=== PATIENT | female | born 1955 | race Caucasian/White ===

== ENCOUNTER 2017-02-15 10:59 | Emergency (ER) | payer BC | END 2017-02-15 11:07 | disposition left against medical advice (07) | LOC: UCEAST 10:59 | DX: S99.919A Unspecified injury of unspecified ankle, initial encounter (principal); X58.XXXA Exposure to other specified factors, initial encounter; Y93.9 Activity, unspecified; Y92.9 Unspecified place or not applicable; Z53.21 Procedure and treatment not carried out due to patient leaving prior to being seen by health care provider ==

== ENCOUNTER 2017-02-15 11:44 | Emergency (ER) | payer BC ==
[2017-02-15 13:01] VITALS: BP 107/64
[2017-02-15] MEDS ORDERED: Ibuprofen TAB* 600 MG PO ONE (13:08)
--- NOTE | 2017-02-15 13:08 | UC ---
Lower Extremity/Ankle HPI - HPI Summary HPI Summary: 61 yo female twisted her left ankle walking dog this AM no hx prior injury has felt achy today no cough/runny nose or UTI symptoms - History of Current Complaint Chief Complaint: UCLowerExtremity Stated Complaint: LEFT ANKLE INJURY Time Seen by Provider: 02/15/17 12:44 Hx Obtained From: Patient Onset/Duration: Sudden Onset, Lasting Hours Severity Initially: Moderate Severity Currently: Moderate Pain Intensity: 6 Pain Scale Used: 0-10 Numeric Aggravating Factor(s): Standing, Ambulation Alleviating Factor(s): Rest, Elevation Able to Bear Weight: No - Allergies/Home Medications Allergies/Adverse Reactions: Allergies Allergy/AdvReac Type Severity Reaction Status Date / Time Codeine Allergy Hives/Diff. Verified 08/28/12 07:11 Breathing/I tching Home Medications: Home Medications Multiple Vitamin [Multi Vitamin] 1 tab PO DAILY 02/15/17 [History Confirmed 04/27] PMH/Surg Hx/FS Hx/Imm Hx Previously Healthy: Yes Endocrine History Of: Denies: Diabetes, Thyroid Disease Cardiovascular History Of: Denies: Cardiac Disorders, Hypertension, Pacemaker/ICD Respiratory History Of: Denies: COPD, Asthma GI/ History Of: Denies: Ulcer, Renal Disease Cancer History Of: Reports: Breast Cancer - RIGHT 2002 - Surgical History Surgical History: Yes Surgery Procedure, Year, and Place: HYSTEROSCOPY 2008. RIGHT BREAST CARCINOMA- LUMPECTOMY THEN RADIATION 2002. Tubal Ligation - Family History Known Family History: Positive: Hypertension - Social History Alcohol Use: Daily Alcohol Amount: glass of wine Substance Use Type: None Smoking Status (MU): Never Smoked Tobacco - Immunization History Most Recent Influenza Vaccination: 2015/2016 Review of Systems Constitutional: Negative Skin: Negative Eyes: Negative ENT: Negative Respiratory: Negative Cardiovascular: Negative Gastrointestinal: Negative Genitourinary: Negative Motor: Negative Neurovascular: Negative Musculoskeletal: Arthralgia Neurological: Negative Psychological: Negative All Other Systems Reviewed And Are Negative: Yes Physical Exam Triage Information Reviewed: Yes Appearance: Well-Appearing, No Pain Distress, Well-Nourished Vital Signs: Initial Vital Signs Temp 100.6 F 02/15/17 12:51 Pulse 82 02/15/17 12:51 Resp 18 02/15/17 12:51 BP 107/64 02/15/17 12:51 Pulse Ox 96 02/15/17 12:51 Eye Exam: Normal Eyes: Positive: Conjunctiva Clear ENT: Positive: Hearing grossly normal, Nasal congestion, Nasal drainage. Negative: Trismus, Muffled/hoarse voice Neck: Positive: Supple, Nontender, No Lymphadenopathy Respiratory: Positive: Lungs clear, Normal breath sounds, No respiratory distress, No accessory muscle use Cardiovascular: Positive: RRR, No Murmur Musculoskeletal: Positive: Other: - see image Neurological: Positive: Alert Psychological Exam: Normal Skin Exam: Normal Lower Extremity Course/Dx - Course Course Of Treatment: declines crutches or walker - Differential Dx/Diagnosis Provider Diagnoses: left ankle sprain Discharge - Discharge Plan Condition: Stable Disposition: HOME Prescriptions: Ibuprofen TAB* [Motrin TAB*] 600 mg PO QID PRN #40 tab PRN Reason: Pain Tramadol HCl [Ultram] 50 mg PO QID PRN #20 tab MDD 4 PRN Reason: Pain - Severe Patient Education Materials: Ankle Sprain (ED) Referrals: Angle Man MD [Primary Care Provider] - Additional Instructions: rest elevate ice use your walking boot recheck in 1-2 weeks if not better (your archival records clerk or orthopedist) Images Feet (Multiple View): 1 - tender 2 - tender/swollen
--- NOTE | 2017-02-15 13:46 | RAD ---
INDICATION: Reduced range of motion after twisting injury of the right ankle. COMPARISON: None. TECHNIQUE: 3 views of the left ankle were obtained. FINDINGS: The well corticated bones exhibit normal alignment. Joint spaces appear maintained. No fracture is seen. IMPRESSION: Normal ankle radiograph. If the patient's symptoms persist, follow-up imaging is recommended.
== END 2017-02-15 14:15 | disposition home or self-care (01) ==
LOC: UCEAST 11:44
DX: S93.402A Sprain of unspecified ligament of left ankle, initial encounter (principal); X50.1XXA Overexertion from prolonged static or awkward postures, initial encounter; Z88.5 Allergy status to narcotic agent; Z85.3 Personal history of malignant neoplasm of breast; Z92.3 Personal history of irradiation
CPT/HCPCS: 99212; A9270-GY; G0463

== ENCOUNTER 2017-09-09 07:50 | Emergency (ER) | payer BC | END 2017-09-09 08:18 | disposition left against medical advice (07) | LOC: UCEAST 07:50 | DX: R09.89 Other specified symptoms and signs involving the circulatory and respiratory systems (principal); R05 Cough; Z53.21 Procedure and treatment not carried out due to patient leaving prior to being seen by health care provider ==

== ENCOUNTER 2018-02-08 07:04 | Emergency (ER) | payer BC ==
[2018-02-08 07:19] VITALS: BP 128/70
[2018-02-08] MEDS ORDERED: Lidocaine 2% VISCOUS* 15 ML UDC PO ONE (07:48)
--- NOTE | 2018-02-08 10:25 | UC ---
Nico Ford Julia, scribed for Rebecca Carroll DO on 02/08/18 at 0738 . General HPI - HPI Summary HPI Summary: This patient is a 62 year old F presenting to [facility] [place] with a chief complaint of a sore throat and cough since the evening 02/06/18. The patient rates the pain 5/ 10 in severity. Patient reports body aches, intermittent muffled hearing, and mild chest pain that only occurs with cough. She denies fever, coughing spasms, sinus congestion, headache, n/v/d, and abdominal pain. Pt has not been eating nor has she been drinking enough fluids secondary to throat pain. Pt reports tinnitus at baseline. Seasonal allergies are currently bothersome. Pt is concerned that symptoms will worsen and prolong, as she as had similar symptoms previously last multiple weeks. - History of Current Complaint Chief Complaint: UCGeneralIllness Stated Complaint: SORE THROAT Time Seen by Provider: 02/08/18 07:10 Hx Obtained From: Patient Onset/Duration: Gradual Onset, Lasting Days Pain Intensity: 5 Pain Location at: throat Aggravating: drinking Associated Signs & Symptoms: Positive: Cough, Chest Pain - only with cough, Decreased Oral Intake, Other - negative - confusion, gait changes, sinus congestion, headache, n/v/d, and abdominal pain. Negative: Abdominal Pain, Fever, Headache - Allergy/Home Medications Allergies/Adverse Reactions: Allergies Allergy/AdvReac Type Severity Reaction Status Date / Time codeine Allergy Severe Difficulty Verified 02/08/18 07:11 Breathing PMH/Surg Hx/FS Hx/Imm Hx Previously Healthy: Yes - other than breast CA in 2002 Other Endocrine History: negative - DM - Surgical History Surgical History: Yes Surgery Procedure, Year, and Place: HYSTEROSCOPY 2008. RIGHT BREAST CARCINOMA- LUMPECTOMY THEN RADIATION 2002. Tubal Ligation - Family History Known Family History: Positive: Hypertension, Other - Alzhiemer's - father, dementia - mother - Social History Alcohol Use: Daily Alcohol Amount: glass of wine Substance Use Type: None Smoking Status (MU): Never Smoked Tobacco - Immunization History Most Recent Influenza Vaccination: 2015/2016 Review of Systems Constitutional: Negative - fever ENT: Sore Throat, Ear Ache Respiratory: Cough Gastrointestinal: Negative Motor: Negative Neurovascular: Negative Musculoskeletal: Myalgia - body aches Neurological: Negative All Other Systems Reviewed And Are Negative: Yes Physical Exam - Summary Physical Exam Summary: Appearance: Well-Appearing, No Pain Distress, Well-Nourished Eyes: conjunctiva clear, no discharge ENT: Hearing grossly normal, no muffled/hoarse voice. Ear canals erythematous bilaterally, pharyngeal erythema , negative tonsillar exudate, negative trismus.Nasal epithelium is pale and boggy. Suborbital congestion Neck: Normal, Supple Respiratory/Lung Sounds: Lungs clear, Normal breath sounds, No respiratory distress, No accessory muscle use Cardiovascular: RRR, No murmur Musculoskeletal: Normal Neurological: Alert, muscle tone normal Psychiatric:Normal, age appropriate behavior Skin: Normal, Warm, Dry, Normal color Triage Information Reviewed: Yes Vital Signs: Initial Vital Signs Temp 98.8 F 02/08/18 07:13 Pulse 71 02/08/18 07:13 Resp 16 02/08/18 07:13 BP 128/70 02/08/18 07:13 Pulse Ox 97 02/08/18 07:13 Vital Signs Reviewed: Yes Course/Dx - Course Course Of Treatment: 62 y/o F presents with a sore throat and a cough for the past few days. Pt reports decreased fluid intake due to throat pain. Pt is given Viscous Lidocaine and is instructed to alternate eating and drinking with the medication. Pt is advised to use a neti-pot and increase fluid intake. - Differential Dx - Multi-Symptom Provider Diagnoses: pharngitis, otitis externa Discharge - Sign-Out/Discharge Documenting (check all that apply): Discharge/Admit/Transfer - Discharge Plan Condition: Stable Disposition: HOME Prescriptions: Ciproflox/Dexameth OTIC.SUSP* [Ciprodex OTIC.SUSP*] 1 drop RIGHT EAR BID #1 btl guaiFENesin ER TAB [Mucinex*] 600 mg PO BID PRN #1 box PRN Reason: Cough Magic Mouth Was-FRANK/MAAL/LIDO* 5 ml SWISH SPIT QID PRN #100 ml PRN Reason: Pain predniSONE TAB* [Deltasone TAB*] 40 mg PO DAILY #10 tab Patient Education Materials: Pharyngitis (ED), Otitis Externa (ED), How to Use Ear Drops (ED), Postnasal Drip (DC) Forms: *Work Release Referrals: Mary Stuart MD [Primary Care Provider] - 4 Days Additional Instructions: TRY USING THE NETTI POT IN THE MORNINGS DISCUSSED. YOU MUST ALWAYS USE CLEAN WATER. REMEMBER, POSTURE IS AN IMPORTANT FACTOR IN SINUS DRAINAGE. MOVE YOUR NECK, BREATHE. EXPECTORANT MEDICATION: WE SENT IN A SCRIPT FOR MUCINEX SO THAT IT IS EASIER FOR YOU TO PICK THE RIGHT MED AT THE PHARMACY. HOWEVER, YOU CAN ALSO GO TO THE [facility] AND BUY PLAIN GUAIFENESIN WITHOU BINDERS OR FILLERS. An expectorant medicine has been prescribed. This type of drug makes mucous thinner, helping the sinuses, nose, and bronchial tubes to remain free of pus and mucous. Expectorants make a cough less severe and more comfortable, and help infected sinuses drain. In general, antihistamines defeat the purpose of the expectorant by making mucous thicker. They should be avoided unless specifically recommended by your physician. CORTICOSTEROID MEDICATION: You have been given a medicine of the cortisone class. This medication is used to control inflammation or allergy. It is usually only given for a short period of time, until the acute process subsides. There are usually no side effects from short-term use of cortisone-like medications. Some persons feel an increased sense of well-being and are not sleepy at bedtime. Long-term use of cortisone medications is best avoided, unless required for a severe condition. If your condition does not remit, or relapses after the course of corticosteroid medication, you should consult your physician. Contact the physician if you develop lightheadedness, black or tarry stools , swelling of the legs, or significant rapid change in weight. DISCUSSED, TRY MAGIC MOUTHWASH TO CONTROL PAIN PRIOR TO EATING. - Billing Disposition and Condition Condition: STABLE Disposition: HOME The documentation as recorded by the Nico santacruz Julia accurately reflects the service I personally performed and the decisions made by me, Rebecca Carroll DO.
== END 2018-02-08 08:11 | disposition home or self-care (01) ==
LOC: UCEAST 07:04
DX: J02.9 Acute pharyngitis, unspecified (principal); H60.90 Unspecified otitis externa, unspecified ear; Z85.3 Personal history of malignant neoplasm of breast; Z88.5 Allergy status to narcotic agent
CPT/HCPCS: 99212; G0463